=== PATIENT | female | born 1965 | race Caucasian/White ===

== ENCOUNTER → 2017-07-25 | Outpatient (CLI) | payer OTHER ==
[2017-07-25 08:55] LABS: BASO % 1 % (0-3); EOS # 0.2 x10^3/uL (0.0-0.7); EOS % 4 % (0-3); HEMATOCRIT 40.3 % (36.0-47.0); HEMOGLOBIN 13.9 g/dL (12.0-15.5); LYMPH # 1.7 x10^3/uL (1.0-4.8); LYMPH % 38 % (24-48); MEAN CORPUSCULAR HEMOGLOBIN 30 pg (25-35); MEAN CORPUSCULAR HGB CONC 35 g/dL (31-37); MEAN CORPUSCULAR VOLUME 87 fL (79-100); MONO # 0.4 x10^3/uL (0.0-1.1); MONO % 9 % (0-9); NEUT # 2.2 x10^3uL (1.8-7.7); NEUT % 49 % (31-73); PLATELET COUNT 248 x10^3/uL (140-400); RED BLOOD COUNT 4.64 x10^6/uL (3.50-5.40); RED CELL DISTRIBUTION WIDTH 13.2 % (11.5-14.5); WHITE BLOOD COUNT 4.5 x10^3/uL (4.0-11.0)
[2017-07-25 09:06] LABS: ALBUMIN 3.9 g/dL (3.4-5.0); ALBUMIN/GLOBULIN RATIO 1.1 (1.0-1.7); CALCIUM 9.1 mg/dL (8.5-10.1); CREATININE 0.8 mg/dL (0.6-1.0); GFR 75.9; POTASSIUM 3.7 mmol/L (3.5-5.1); TOTAL BILIRUBIN 0.9 mg/dL (0.2-1.0); TOTAL PROTEIN 7.4 g/dL (6.4-8.2)
[2017-07-25 09:08] LABS: BACTERIA,URINE MANY /HPF (0-FEW); BILIRUBIN,URINE NEG (NEG); CLARITY,URINE CLOUDY; COLOR,URINE YELLOW; GLUCOSE,URINE NEG (NEG); NITRITE,URINE POS (NEG); RBC,URINE OCC /HPF (0-2); SQUAMOUS EPITHELIAL CELL,UR OCC /LPF; UROBILINOGEN,URINE 0.2 mg/dL (0.2 mg/dL)
[2017-07-25 13:30] LABS: FREE T4 0.97 ng/dL (0.76-1.46); THYROID STIM HORMONE (TSH) 3.387 uIU/mL (0.358-3.740)
== END | disposition home or self-care (01) ==
LOC: LAB 07:55
PROVIDERS: ATTEND Nurse Practitioner Family
DX: Z00.01 Encounter for general adult medical examination with abnormal findings (principal); E11.9 Type 2 diabetes mellitus without complications
CPT/HCPCS: 36415; 80053; 80061; 81001; 83036; 84439; 84443; 85025; 87086

== ENCOUNTER → 2018-12-05 | Outpatient (CLI) | payer OTHER ==
--- NOTE | 2018-12-05 10:48 | RAD ---
3 views cervical spine 12/05/2018 INDICATION: Reticular adenopathy COMPARISON STUDY: None Discussion: No evidence of acute fracture or alignment abnormality is identified. Vertebral body heights are maintained. Disc space narrowing is noted at C6-C7. Mild neural foraminal stenosis could be present at this level. No prevertebral soft tissue thickening is seen. The atlantoaxial articulation is intact. IMPRESSION: Degenerative changes of the cervical spine most prominently at the C6-C7 level. A component of neural foraminal narrowing may be present. Correlate with clinical exam findings consider MRI evaluation as clinically indicated. Electronically signed by: Aram Reed MD (12/05/2018 10:45 AM) [id number]
== END | disposition home or self-care (01) ==
LOC: RAD 09:46
PROVIDERS: ATTEND Registered Nurse
DX: M47.892 Other spondylosis, cervical region (principal); M48.02 Spinal stenosis, cervical region
CPT/HCPCS: 72040

== ENCOUNTER → 2019-10-08 | Outpatient (CLI) | payer OTHER ==
--- NOTE | 2019-10-08 15:29 | RAD ---
Examination: 2 views of the bilateral feet, 2 views of the bilateral hands, 2 views of bilateral shoulders HISTORY: History of foot pain, bilateral hand pain, shoulder pain COMPARISON: None available FINDINGS: The alignment of the tarsal bones, tarsometatarsal joints, metatarsophalangeal joints, interphalangeal joints grossly appears unremarkable. The alignment of the metacarpophalangeal joints, interphalangeal joints grossly appears unremarkable. Mild joint space loss identified in the glenohumeral joint, acromioclavicular joints. IMPRESSION: 1. Mild degenerative changes acromioclavicular joints and glenohumeral joints. 2. No acute osseous findings. Electronically signed by: Aaron Greenberg MD (10/08/2019 3:27 PM) [place] [id number]
== END | disposition home or self-care (01) ==
LOC: PMG 13:36
PROVIDERS: ATTEND Registered Nurse
DX: M19.011 Primary osteoarthritis, right shoulder (principal); M19.012 Primary osteoarthritis, left shoulder; R22.33 Localized swelling, mass and lump, upper limb, bilateral; R22.42 Localized swelling, mass and lump, left lower limb; M79.641 Pain in right hand; M79.642 Pain in left hand; M79.671 Pain in right foot; M79.672 Pain in left foot
CPT/HCPCS: 73030; 73120; 73620

== ENCOUNTER → 2019-11-21 | Outpatient (CLI) | payer OTHER ==
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
== END ==
LOC: PMG 08:35
PROVIDERS: ATTEND Registered Nurse
DX: M47.812 Spondylosis without myelopathy or radiculopathy, cervical region (principal)
CPT/HCPCS: 72040

== ENCOUNTER → 2020-06-25 | Outpatient (CLI) | payer OTHER ==
--- NOTE | 2020-06-25 16:32 | RAD ---
3 views left shoulder compared to similar exam dated October 08, 2019 for left shoulder pain. FINDINGS: There is no fracture, dislocation, or acute osseous abnormality identified. 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 Evaluation with MRI of the shoulder could allow for definitive assessment of this lesion as well as characterization of the soft tissues given this patient's recurrent complaints of left shoulder pain. IMPRESSION: 1. No acute osseous abnormality. 2. 5 mm lucency in the humeral head with a thin sclerotic margin and no additional radiographic sequelae of chronic glenohumeral osteoarthritis. Consider further evaluation with MRI for better characterization of this lesion as well as for assessment of the shoulder soft tissues in this patient with recurrent complaints of shoulder pain. Electronically signed by: Kalyan Sheehan MD (06/25/2020 4:29 PM) [id number]
== END ==
LOC: RAD 15:44
PROVIDERS: ATTEND Physician Assistant
DX: M19.012 Primary osteoarthritis, left shoulder (principal)
CPT/HCPCS: 73030

== ENCOUNTER → 2021-12-13 | Outpatient (CLI) | payer BC ==
--- NOTE | 2021-12-13 08:28 | RAD ---
INDICATION: Reason: SOA FOR 2 WEEKS / Spl. Instructions: / History: COMPARISON: September 2016 FINDINGS: 2 view of chest obtained. No focal airspace consolidation. Cardiomediastinal contour unremarkable. No acute osseous abnormality. IMPRESSION: * No focal airspace consolidation or edema. Electronically signed by: Rudolph Puri MD (12/13/2021 8:26 AM) [id number]
== END ==
LOC: PMG 07:58
PROVIDERS: ATTEND Nurse Practitioner Family
DX: R06.02 Shortness of breath (principal)
CPT/HCPCS: 71046

== ENCOUNTER → 2022-02-08 | Outpatient (CLI) | payer BC ==
--- NOTE | 2022-02-08 11:07 | RAD ---
CT ABDOMEN+PELVIS WO History: Right flank pain. Comparison: None. Technique: Noncontrast CT of the abdomen and pelvis Findings: Lung bases are clear. The liver, gallbladder, pancreas, spleen, and adrenal glands are unremarkable. There is no nephrolithiasis or hydronephrosis. No perinephric fat stranding. No ureterolithiasis or h ydroureter the bladder is unremarkable. Status post hysterectomy. No pelvic masses. Well-distended stomach without abnormality. Small bowel is unremarkable. There are surgical clips at the cecum consistent with appendectomy. No pericolonic inflammatory changes or colonic wall thickenin g. Mild aortic calcification without aneurysm. No free intraperitoneal air or fluid. No adenopathy. Soft tissues are unremarkable no acute osseous abnormality. Mild degenerative changes of the lumbar s pine with disc space narrowing at L4-L5 and L5-S1. Impression: 1. No nephrolithiasis or hydronephrosis. No etiology for right flank pain identified. 2. Mild degenerative changes of the lower lumbar spine. ------ Exposure: One or more of the following individualized dose reduction techniques were utilized for thi s examination: 1. Automated exposure control 2. Adjustment of the mA and/or kV according to patient size 3. Use of iterative reconstruction technique. Electronically signed by: Juan James MD (02/08/2022 11:04 AM) [facility]
== END ==
LOC: CT 09:20
PROVIDERS: ATTEND Physician Assistant Medical
DX: R10.9 Unspecified abdominal pain (principal); M47.816 Spondylosis without myelopathy or radiculopathy, lumbar region; I70.0 Atherosclerosis of aorta; M48.07 Spinal stenosis, lumbosacral region; Z90.710 Acquired absence of both cervix and uterus
CPT/HCPCS: 74176